=== PATIENT | male | born 1960 | race Caucasian/White ===

== ENCOUNTER → 2017-01-13 | Outpatient (CLI) | payer BC ==
[~2017-01-13] MED LIST: ALEVE220 M1 PO; ALTOPREV40 MG PO; AMLODIPINE BESYL5 MG PO; BLOOD PRESSURE MED; CHONDROITIN SU250 MG PO; GLUCOSAMINE CHO1 CA1 PO; IBUPROFEN PO; LEVAQUIN PO; LISINOPRIL PO; LOVASTATIN20 MG PO; NORCO 5/325 TAB1 TAB PO; NORVASC10 MG PO; PHENERGAN25 M1 PO; TYLOX 5/500 CAP1 CAP PO; VOLTAREN50 MG PO
--- NOTE | ~2017-01-13 | US37 ---
[facility] A Service [facility] RADIOLOGY TEXT RESULTS PATIENT: NIKO CORONA LOCATION: SNIV : 58 UNIT #: [id number] AGE: [address]: Chucho Miller MD SEX: M ORDER DR: [id number] [place] [id number] O MR#: [id number] Acc #: [id number] NAME: NIKO CORONA : 1960 SEX: M STUDY DATE/TIME: 01/13/2017 9:15 UNIT: SNIV ROOM: STUDY DESCRIPTION: US Carotid W/Doppler Bilateral Attending Physician: Chucho Miller M.D. Referring Physician: Chucho Miller M.D. Ordering Physician: Chucho Miller M.D. Primary Care Physician: Chucho Miller M.D. MEDICAL IMAGING REPORT This report is preliminary unless electronic signature is present. EXAM Carotid Doppler INDICATIONS Confusion/memory loss. Patient does have a history of numbness in the right hand TECHNIQUE Bilateral carotid ultrasound examination was performed using howe-scale, spectral Doppler, color-flow Doppler imaging. Carotid flow was assessed using standards based on NASCET methodology. FINDINGS Ultrasound examination of the carotid arteries shows some mild plaque involving the proximal right internal carotid and external carotid arteries. Doppler evaluation shows normal flow velocities and normal Doppler waveforms within the carotid and vertebral arteries bilaterally. Peak systolic internal carotid artery flow velocities measure up to 111 cm/sec on the right and 95 cm/sec on the left. There is no evidence of significant carotid stenosis in the neck. IMPRESSION Mild carotid disease. No Doppler ultrasound evidence of flow-limiting or clinically significant carotid stenosis Dictated by... Su Lynn M.D. THIS IS AN ELECTRONICALLY VERIFIED REPORT Su Lynn M.D. at 01/14/2017 5:41 PM AFF/to [facility] A Service [facility] RADIOLOGY TEXT RESULTS PATIENT: NIKO CORONA LOCATION: SNIV : 58 UNIT #: [id number] AGE: [address]: Chucho Miller MD SEX: M ORDER DR: TD: 01/13/2017 19:00 JOB #: [id number] MEDICAL IMAGING REPORT Page 1 of 1
== END | disposition home or self-care (01) ==
LOC: SNIV 07:55
DX: I65.22 Occlusion and stenosis of left carotid artery (principal); I77.9 Disorder of arteries and arterioles, unspecified
CPT/HCPCS: 93880